=== PATIENT | female | born 1975 | race Caucasian/White ===

== ENCOUNTER → 2016-09-27 | Outpatient (CLI) | payer OTHER ==
[~2016-09-27] MED LIST: ASPIR-LOW81 MG PO; ENDOCET 5-3251 EACH PO; IBUPROFEN800 MG PO; IRON325 M1 PO; PRENATAL MULTI1 EAC2 PO
== END | disposition home or self-care (01) ==
LOC: NUC 07:00
DX: R10.11 Right upper quadrant pain (principal)
CPT/HCPCS: 78227; A9537; J2805

== ENCOUNTER 2016-11-12 05:25 | Day surgery (SDC) | payer OTHER ==
[~2016-11-12] VITALS: Ht 152.4 cm; Wt 67.2 kg
[~2016-11-12 05:25] MED LIST changes: +DAILY VALUE1 EACH PO; +ZANTAC150 MG PO
[2016-11-12 05:55] VITALS: BP 134/91
[2016-11-12] MEDS ORDERED: PERCOCET 5/31 TABLET PO (08:37)
[2016-11-12 10:48] VITALS: BP 121/74
[2016-11-12 11:00] VITALS: BP 111/68
[2016-11-12 11:51] VITALS: BP 113/70
== END 2016-11-12 12:07 | disposition home or self-care (01) ==
LOC: SDC 05:25
DX: K81.1 Chronic cholecystitis (principal); K66.0 Peritoneal adhesions (postprocedural) (postinfection); E78.00 Pure hypercholesterolemia, unspecified; J30.9 Allergic rhinitis, unspecified; Z82.49 Family history of ischemic heart disease and other diseases of the circulatory system; Z83.2 Family history of diseases of the blood and blood-forming organs and certain disorders involving the immune mechanism; Z80.49 Family history of malignant neoplasm of other genital organs
CPT/HCPCS: 88304; J0330; J0690; J1100; J1170; J2250; J2405; J2710; J2765; J3010